=== PATIENT | male | born 1990 | race Caucasian/White ===

== ENCOUNTER → 2020-09-27 | Outpatient (CLI) | payer OTHER ==
[~2020-09-27] MED LIST: CIPRO500 MG PO; IBUPROFEN600 MG PO; NORCO 5-325 TA1 EACH PO; PREDNISONE20 MG PO
== END ==
LOC: RAD 18:12
DX: R05 Cough (principal); R91.8 Other nonspecific abnormal finding of lung field
CPT/HCPCS: 71046